=== PATIENT | female | born 1970 | race Caucasian/White ===

== ENCOUNTER 2021-03-22 15:00 | Observation (INO) ==
--- NOTE | 2021-03-22 15:39 | DR.CP ---
HPI Time Seen Time Seen by Provider: 03/22/21 15:34 PCP Primary Care Physician: HPI Comment HPI Comment: PATIENT IS 50YR OLD FEMALE IN ER WITH RIGHT SIDED CHEST PAIN Complaint Chief Complaint Doctor Comments: CHEST PAIN TIMES 2 DAYS. Chief Complaint:: PT C/O RIGHT SIDE CP RADIATING TO RIGHT X2 DAYS. PT DENIES ANY SOB @ THIS TIME. PT STATES SHE HAS NOT TOOK ASA TODAY. PT ALSO STATES SHE SHE HAS TAKEN NITRO SUBL X2 W/ LITTLE RELIEF. COVID-19 Coronavirus risk:travel/contact w/high risk person: No Has patient experienced Coronavirus symptoms: No Source History Provided: Patient Mode of Arrival Mode of Arrival: Ambulatory Timing Onset of Chief Complaint: 03/20/21 PMH PMH Past Medical History: Yes Past Medical History: Seizures Past Surgical History: Yes Surgical History: Cholecystectomy, Hysterectomy and Neurosurgery Family History History of Family Medical Conditions: Yes Family Medical History: Diabetes Mellitus, [place], Heart Failure and Hypertension Social History Does patient currently use any type of tobacco product: Yes Have you used tobacco products in the last 12 months: Yes Type of Tobacco Use: Cigarettes Do you use any recreational Drugs:: No Travel Risk Coronavirus risk:travel/contact w/high risk person: No Has patient experienced Coronavirus symptoms: No Infectious screening Have you traveled outside the country in the last 6 months?: No Isolation: Standard PE Vitals Vitals: Temperature 98.0 F Pulse Rate [Left Radial] 81 Pulse Rate 80 Respiratory Rate 16 Blood Pressure [Left Arm] 94/65 Blood Pressure 113/58 O2 Sat by Pulse Oximetry 97 ROR Labs Reviewed Result Diagrams: 03/22/21 15:53 03/22/21 15:53 Laboratory: WBC 7.4 X10^3/uL (3.6-10.0) 03/22/21 15:53 RBC 4.42 X10^6/uL (3.5-5.4) 03/22/21 15:53 Hgb 10.6 g/dL (12.0-16.0) L 03/22/21 15:53 Hct 33.7 % (36.0-47.0) L 03/22/21 15:53 MCV 76.1 fL (80.0-100.0) L 03/22/21 15:53 MCH 24.1 pg (27.0-34.0) L 03/22/21 15:53 MCHC 31.6 g/dL (33.0-35.0) L 03/22/21 15:53 RDW 18.5 % (11.6-16.5) H 03/22/21 15:53 Plt Count 238 X10^3/uL (150.0-450.0) 03/22/21 15:53 MPV 8.9 fL (7.4-11.0) 03/22/21 15:53 Neut % (Auto) 47.5 % (42.0-75.0) 03/22/21 15:53 Lymph % (Auto) 39.5 % (21.0-51.0) 03/22/21 15:53 [place] % (Auto) 9.9 % (0.0-13.0) 03/22/21 15:53 Eos % (Auto) 2.0 % (0.9-2.9) 03/22/21 15:53 Baso % (Auto) 1.1 % (0.2-1.0) H 03/22/21 15:53 Neut # (Auto) 3.5 x10^3/uL (2.2-4.8) 03/22/21 15:53 Lymph # (Auto) 2.9 X10^3/uL (1.3-2.9) 03/22/21 15:53 [place] # (Auto) 0.7 x10^3/uL (0.3-0.8) 03/22/21 15:53 Eos # (Auto) 0.1 x10^3/uL (0.0-0.2) 03/22/21 15:53 Baso # (Auto) 0.1 X10^3/uL (0.0-0.1) 03/22/21 15:53 Absolute Nucleated RBC 0.1 /100WBC 03/22/21 15:53 D-Dimer < 0.27 ug/ml (0.0-0.57) 03/22/21 15:53 Sodium 141 mmol/L (136-145) 03/22/21 15:53 Corrected Sodium TNP 03/22/21 15:53 Potassium 3.4 mmol/L (3.5-5.1) L 03/22/21 15:53 Chloride 105 mmol/L (98-107) 03/22/21 15:53 Carbon Dioxide 28.5 mmol/L (21-32) 03/22/21 15:53 BUN 8 mg/dL (7-18) 03/22/21 15:53 Creatinine 0.82 mg/dL (0.55-1.02) 03/22/21 15:53 Est GFR (MDRD) Af Amer > 60 (>60) 03/22/21 15:53 Est GFR (MDRD) Non-Af > 60 (>60) 03/22/21 15:53 Glucose 71 mg/dL (65-99) 03/22/21 15:53 Calcium 8.6 mg/dL (8.5-10.1) 03/22/21 15:53 Corrected Calcium 9.2 mg/dL (8.5-10.1) 03/22/21 15:53 Total Bilirubin 0.10 mg/dL (0.2-1.0) L 03/22/21 15:53 AST 29 Units/L (15-37) 03/22/21 15:53 ALT 44 Units/L (12-78) 03/22/21 15:53 Alkaline Phosphatase 113 Units/L (46-116) 03/22/21 15:53 Creatine Kinase 57 Units/L (26-192) 03/22/21 15:53 CK-MB (CK-2) < 1.0 ng/mL (0-4.0) 03/22/21 15:53 CK/CKMB % Calc 1.8 % (<4) 03/22/21 15:53 Troponin I < 0.02 ng/mL (0-1.5) 03/22/21 15:53 B-Natriuretic Peptide 28.5 pg/mL (0-79) 03/22/21 15:53 Total Protein 6.5 g/dL (6.4-8.2) 03/22/21 15:53 Albumin 3.3 g/dL (3.4-5.0) L 03/22/21 15:53 Globulin 3.2 g/dL (2.5-4.5) 03/22/21 15:53 Albumin/Globulin Ratio 1.0 Ratio (1.1-2.1) L 03/22/21 15:53 SARS CoV-2 RNA Rapid FABRICE Negative (NEGATIVE) 03/22/21 18:05 Opioid Opioid Risk Tool Age (Ethan box if 16-45): No History of Preadolescent Sexual Abuse: No Total: 0 Total Score Risk Category: Low Risk Copyright: Ronald BRANCH predicting aberrant behaviors
[2021-03-22 16:08] LABS: BASOPHILS # (AUTO) 0.1 X10^3/uL (0.0-0.1); HEMOGLOBIN 10.6 g/dL (12.0-16.0); LYMPHOCYTES # (AUTO) 2.9 X10^3/uL (1.3-2.9); MEAN CORPUSCULAR HGB CONC 31.6 g/dL (33.0-35.0); MONOCYTES # (AUTO) 0.7 x10^3/uL (0.3-0.8); NEUTROPHILS # (AUTO) 3.5 x10^3/uL (2.2-4.8)
[2021-03-22 16:16] LABS: BASOPHILS % (AUTO) 1.1 % (0.2-1.0); EOSINOPHILS # (AUTO) 0.1 x10^3/uL (0.0-0.2); HEMATOCRIT 33.7 % (36.0-47.0); LYMPHOCYTES % (AUTO) 39.5 % (21.0-51.0); MEAN CORPUSCULAR HEMOGLOBIN 24.1 pg (27.0-34.0); MEAN CORPUSCULAR VOLUME 76.1 fL (80.0-100.0); MEAN PLATELET VOLUME 8.9 fL (7.4-11.0); MONOCYTES % (AUTO) 9.9 % (0.0-13.0); NEUTROPHILS % (AUTO) 47.5 % (42.0-75.0); PLATELET COUNT 238 X10^3/uL (150.0-450.0); RED BLOOD COUNT 4.42 X10^6/uL (3.5-5.4); RED CELL DISTRIBUTION WIDTH 18.5 % (11.6-16.5); WHITE BLOOD COUNT 7.4 X10^3/uL (3.6-10.0)
[2021-03-22 16:25] LABS: ALANINE AMINOTRANSFERASE 44 Units/L (12-78); ALBUMIN 3.3 g/dL (3.4-5.0); ALKALINE PHOSPHATASE 113 Units/L (46-116); ASPARTATE AMINO TRANSFERASE 29 Units/L (15-37); BLOOD UREA NITROGEN 8 mg/dL (7-18); CALCIUM 8.6 mg/dL (8.5-10.1); CARBON DIOXIDE 28.5 mmol/L (21-32); CHLORIDE 105 mmol/L (98-107); CKMB % 1.8 % (<4); COR CA(FOR HYPOALB) 9.2 mg/dL (8.5-10.1); CREATINE KINASE 57 Units/L (26-192); CREATINE KINASE MB < 1.0 ng/mL (0-4.0); CREATININE 0.82 mg/dL (0.55-1.02); SODIUM 141 mmol/L (136-145); TOTAL PROTEIN 6.5 g/dL (6.4-8.2); TROPONIN I < 0.02 ng/mL (0-1.5); eGFR NON BLACK RACES > 60 (>60)
[2021-03-22] MEDS ORDERED: ASPIRIN 81 MG CHEWTAB ONE (16:58)
[2021-03-22] MEDS ORDERED: PEPCID 20 MG IV PREMIX* 50 ML IV ONE (16:59)
[2021-03-22] MEDS ORDERED: PEPCID 20 MG IV PREMIX* 20 MG/50 ML BAG IV ONE (17:06)
[2021-03-22] MEDS ORDERED: ASPIRIN 81 MG CHEWTAB PO ONE (17:07)
[2021-03-22] MEDS ORDERED: MORPHINE SULFATE INJ 4 MG IVP ONE (17:32)
[2021-03-22] MEDS ORDERED: ZOFRAN INJ 4 MG VIAL IVP ONE (17:33)
[2021-03-22] MEDS ORDERED: MORPHINE SULFATE INJ 4 MG ONE (17:36)
[2021-03-22] MEDS ORDERED: ZOFRAN INJ 4 MG VIAL ONE (17:36)
--- NOTE | 2021-03-22 17:37 | RAD ---
HISTORYCHEST PAINSTUDYCHEST, 1 VIEWCOMPARISONAugust 2020TECHNIQUEChest radiographic imaging, AP portable projection, 1 imageFINDINGSNo cardiomegaly.No focal airspace disease.No pleural effusion.No pneumothorax.No acute osseous abnormality.IMPRESSIONNo imaging findings of acute cardiopulmonary disease.Electronically signed by: Adalberto Hernandez (Mar 22, 2021 16:24:59)
[2021-03-22] MEDS ORDERED: NS 1,000 ML IV 1,000 ML ONE (19:52)
[2021-03-22] MEDS ORDERED: NS 1,000 ML IV 1,000 ML IV ONE (19:54)
[2021-03-22] MEDS ORDERED: MORPHINE SULFATE INJ 2 MG INJ IVP PRN (20:04)
[2021-03-22] MEDS ORDERED: ZOFRAN INJ 4 MG VIAL IVP PRN (20:04)
[2021-03-22] MEDS: PROTONIX INJ 40 MG VIAL IVP SCH (21:15)
[2021-03-22 21:36] VITALS: BMI 24.0
[2021-03-22 23:17] LABS: CKMB % 2.4 % (<4); CREATINE KINASE 41 Units/L (26-192); CREATINE KINASE MB < 1.0 ng/mL (0-4.0); TROPONIN I < 0.02 ng/mL (0-1.5)
[2021-03-23] MEDS: PHENOBARBITAL PO SCH ×2 (02:14→06:25)
[2021-03-23 05:10] LABS: BASOPHILS # (AUTO) 0.1 X10^3/uL (0.0-0.1); BASOPHILS % (AUTO) 0.9 % (0.2-1.0); EOSINOPHILS # (AUTO) 0.2 x10^3/uL (0.0-0.2); EOSINOPHILS % (AUTO) 2.5 % (0.9-2.9); HEMATOCRIT 31.9 % (36.0-47.0); HEMOGLOBIN 10.2 g/dL (12.0-16.0); LYMPHOCYTES # (AUTO) 3.2 X10^3/uL (1.3-2.9); LYMPHOCYTES % (AUTO) 51.1 % (21.0-51.0); MEAN CORPUSCULAR HEMOGLOBIN 24.3 pg (27.0-34.0); MONOCYTES # (AUTO) 0.7 x10^3/uL (0.3-0.8); MONOCYTES % (AUTO) 10.3 % (0.0-13.0); NEUTROPHILS # (AUTO) 2.2 x10^3/uL (2.2-4.8); NEUTROPHILS % (AUTO) 35.2 % (42.0-75.0); PLATELET COUNT 222 X10^3/uL (150.0-450.0); RED BLOOD COUNT 4.19 X10^6/uL (3.5-5.4); RED CELL DISTRIBUTION WIDTH 18.5 % (11.6-16.5); WHITE BLOOD COUNT 6.3 X10^3/uL (3.6-10.0)
[2021-03-23 05:38] LABS: ALANINE AMINOTRANSFERASE 35 Units/L (12-78); ALBUMIN 2.9 g/dL (3.4-5.0); ALKALINE PHOSPHATASE 105 Units/L (46-116); ASPARTATE AMINO TRANSFERASE 29 Units/L (15-37); BLOOD UREA NITROGEN 8 mg/dL (7-18); CALCIUM 8.3 mg/dL (8.5-10.1); CARBON DIOXIDE 29.8 mmol/L (21-32); CHLORIDE 109 mmol/L (98-107); CHOL/HDL RATIO 4.4 (0.0-5.0); CHOLESTEROL 132 mg/dL (0-200); CKMB % 2.5 % (<4); COR CA(FOR HYPOALB) 9.2 mg/dL (8.5-10.1); CREATINE KINASE 40 Units/L (26-192); CREATINE KINASE MB < 1.0 ng/mL (0-4.0); CREATININE 0.72 mg/dL (0.55-1.02); HDL CHOLESTEROL 30 mg/dL (40-60); MAGNESIUM 1.7 mg/dL (1.7-2.9); SODIUM 144 mmol/L (136-145); TOTAL PROTEIN 5.7 g/dL (6.4-8.2); TRIGLYCERIDES 173 mg/dL (0-150); TROPONIN I < 0.02 ng/mL (0-1.5); eGFR NON BLACK RACES > 60 (>60)
[2021-03-23] MEDS ORDERED: PHENOBARBITAL TAB 30 MG (32.4MG) PO SCH (07:00)
[2021-03-23] MEDS: PROTONIX INJ 40 MG VIAL IVP SCH (07:30)
[2021-03-23] MEDS ORDERED: MAGNESIUM SULFATE 1 GRAM/100 mL PREMIX 1 G/100 ML BAG IV PRN (08:59)
[2021-03-23 12:04] VITALS: BP 83/50
--- NOTE | 2021-03-23 12:13 | RAD ---
Cervical spine two viewsIndication: Neck painFINDINGSThere is no cortical lucency or malalignment. Prevertebral soft tissues are normal.IMPRESSIONMild degenerative change, without convincing acute osseous abnormality. Cervicothoracic junction is poorly characterized. Disc osteophytes most notably at C4-C5.Electronically signed by: DEE PIERCE (Mar 23, 2021 12:12:07)
--- NOTE | 2021-03-23 12:14 | RAD ---
Right shoulder three viewsIndication: Right shoulder painFINDINGSAcromioclavicular glenohumeral joint are intact. There is no cortical lucency or malalignment.IMPRESSIONNo acute right shoulder fracture.Electronically signed by: DEE PIERCE (Mar 23, 2021 12:13:16)
== END 2021-03-23 12:35 | disposition home or self-care (01) ==
LOC: MED/SURG 15:05 → ER 15:05 → MED/SURG 19:56
PROVIDERS: ADMIT Family Medicine; ATTEND Family Medicine
DX: Z20.822 Contact with and (suspected) exposure to COVID-19; M54.2 Cervicalgia; E87.1 Hypo-osmolality and hyponatremia; R07.89 Other chest pain; M25.511 Pain in right shoulder